=== PATIENT | male | born 1990 | race Caucasian/White ===

== ENCOUNTER 2024-06-18 05:48 | Emergency (ER) | payer SELFPAY ==
[~2024-06-18] VITALS: Ht 175.3 cm; Wt 118.0 kg
[2024-06-18 05:51] VITALS: O2SAT 98
[2024-06-18] MEDS: KETOROLAC 30MG/ML VIAL IM ONE (06:40)
[2024-06-18 06:46] LABS: BASOPHILS % 0.6 % (0.0-2.0); EOSINOPHILS % 7.5 % (0.0-5.0); HEMATOCRIT. 40.9 % (42.0-52.0); HEMOGLOBIN. 13.6 g/dL (14.0-18.0); LYMPHOCYTES % 20.4 % (20.0-50.0); MEAN CORPUSCULAR HEMOGLOBIN 29.1 pg (28.0-32.0); MEAN CORPUSCULAR HGB CONC 33.2 g/dL (31.0-37.0); MEAN CORPUSCULAR VOLUME 87.8 fL (80.0-94.0); MEAN PLATELET VOLUME 7.8 fl (7.4-10.4); MONOCYTES % 8.6 % (2.0-8.0); NEUTROPHILS % 62.9 % (40.0-76.0); PLATELET 394 x1000/uL (130-400); RED BLOOD CELL COUNT 4.66 mill/uL (4.7-6.1); RED CELL DISTRIBUTION WIDTH 12.5 % (11.6-14.6); WHITE BLOOD COUNT 9.3 x1000/uL (4.5-11.0)
[2024-06-18 06:55] LABS: CHLORIDE 107 mEq/L (98-107); POTASSIUM 3.8 mEq/L (3.5-5.1); SODIUM 137 mEq/L (136-145)
[2024-06-18 06:56] LABS: CALCIUM 9.3 mg/dL (8.7-10.4); CARBON DIOXIDE 24 mEq/L (21-32)
[2024-06-18 07:01] LABS: GLUCOSE 153 mg/dL (70-105); UREA NITROGEN BLOOD 10 mg/dL (9-23)
[2024-06-18 07:03] LABS: TROPONIN I HIGH SENSITIVITY 6 ng/L (3.0-53)
[2024-06-18] MEDS ORDERED: CELE-384 MT (09:42)
[2024-06-18 10:01] VITALS: BP 132/69; PULSE 87; RESP 16; TEMP 36.66960; O2SAT 99
[2024-06-18] MEDS ORDERED: IOHEXOL-350 100 ML BOTTLE ONE (15:12)
== END 2024-06-18 10:12 | disposition home or self-care (01) ==
LOC: ER 05:48
DX: R07.9 Chest pain, unspecified (principal)
CPT/HCPCS: 80048; 83880; 85025; 85379; 84484; 36415; 71045; 71275; 93005; 96372; 99285; Q9967; J1885; Z7610